=== PATIENT | female | born 1955 | race Hispanic/Latino ===

== ENCOUNTER → 2018-12-18 | Outpatient (CLI) | payer BC ==
--- NOTE | 2018-12-18 10:30 | Diagnostic Imaging Report ---
EXAMINATION: Chest radiograph-1 view; right rib radiographs-3 views INDICATION: Right-sided rib pain. COMPARISON: None FINDINGS: TUBES and LINES: None. LUNGS: Lungs are well inflated. Lungs are clear. There is no evidence of pneumonia or pulmonary edema. PLEURA: No pleural effusion or pneumothorax. HEART AND MEDIASTINUM: The cardiomediastinal silhouette is unremarkable. BONES AND SOFT TISSUES: No acute osseous abnormality. No evidence of displaced right-sided rib fracture. UPPER ABDOMEN: No free air under the diaphragm. IMPRESSION: No acute radiographic abnormality. No evidence of displaced right-sided rib fracture. Signed by: Dr. Loren Sanchez MD on 12/18/2018 10:26 AM
== END ==
LOC: RAD 09:40
PROVIDERS: ATTEND Family Medicine
DX: R07.89 Other chest pain (principal)
CPT/HCPCS: 71101

== ENCOUNTER → 2019-05-29 | Outpatient (CLI) | payer BC ==
--- NOTE | 2019-05-29 10:09 | Diagnostic Imaging Report ---
Exam: Left knee 3 views Clinical History: Left knee pain Findings: There is no evidence of acute fracture or malalignment. The articular joints are well-preserved. The soft tissue is unremarkable. Impression: No radiographic evidence of acute osseous injury. Signed by: Dr. Viraj Cadet MD on 05/29/2019 10:05 AM
== END ==
LOC: RAD 09:15
PROVIDERS: ATTEND Family Medicine
DX: M25.562 Pain in left knee (principal)